=== PATIENT | male | born 1950 | race African-American/Black ===

== ENCOUNTER 2020-02-20 06:48 | Day surgery (SDC) | payer MEDICARE ==
[~2020-02-20] VITALS: Ht 170.2 cm; Wt 90.7 kg
[~2020-02-20 06:48] MED LIST: BIKTARVY 50-2001 TAB PO; CARVEDILOL25 MG PO; GABAPENTIN100 MG PO; HYDRALAZINE HYD50 MG PO; NORVASC5 M1 PO; TERAZOSIN5 MG PO
[2020-02-20 11:26] VITALS: BP 110/59
== END 2020-02-20 11:50 | disposition home or self-care (01) ==
LOC: ENDO 06:48
PROVIDERS: ATTEND Internal Medicine Gastroenterology
PROC: 0DJD8ZZ Inspection of Lower Intestinal Tract, Via Natural or Artificial Opening Endoscopic (ICD-10-PCS; principal; 2020-02-20)
DX: K57.30 Diverticulosis of large intestine without perforation or abscess without bleeding (principal); K64.8 Other hemorrhoids; I10 Essential (primary) hypertension; Z21 Asymptomatic human immunodeficiency virus [HIV] infection status; Z11.59 Encounter for screening for other viral diseases